=== PATIENT | male | born 1945 | race Caucasian/White ===

== ENCOUNTER → 2017-04-18 | Outpatient (CLI) | payer MEDICARE | END | disposition home or self-care (01) | LOC: PCVCCLINIC 13:44 | PROVIDERS: ATTEND Internal Medicine | DX: I48.4 Atypical atrial flutter (principal); I12.0 Hypertensive chronic kidney disease with stage 5 chronic kidney disease or end stage renal disease; N18.6 End stage renal disease; R00.1 Bradycardia, unspecified; E78.5 Hyperlipidemia, unspecified; E08.22 Diabetes mellitus due to underlying condition with diabetic chronic kidney disease; R94.31 Abnormal electrocardiogram [ECG] [EKG]; I27.29 Other secondary pulmonary hypertension; K74.60 Unspecified cirrhosis of liver; Z99.2 Dependence on renal dialysis | CPT/HCPCS: 80061; 93005; G0463 ==

== ENCOUNTER → 2017-04-28 | Outpatient (CLI) | payer MEDICARE ==
--- NOTE | 2017-04-28 16:08 | PCVCIMAG ---
APPROVED REPORT Study performed: 04/28/2017 14:13:12 EXAM: Comprehensive 2D, Doppler, and color-flow Echocardiogram Patient Location: Echo lab Status: routine BSA: 1.96 HR: 53 bpmBP: 152/70 mmHg Rhythm: Bradycardia, Bigeminy Other Information Study Quality: Good Risk Factors: Cardiac Risk Factors: HTN, Hyperlipidemia Indications Pulmonary Hypertension Atrial Flutter 2D Dimensions LVEF(%): 40.00 (>50%) IVSd: 12.63 (7-11mm)LVOT Diam: 20.02 (18-24mm) LVDd: 46.27 mm PWd: 13.12 (7-11mm)Ascending Ao: 33.60 (22-36mm) LVDs: 38.81 (25-40mm) Left Atrium: 47.37 (27-40mm) Aortic Root: 30.47 mm LV Single Plane 4CH: 44.18 % LV Single Plane 2CH: 52.12 %Casanova's LVEF: 48.15 % Biplane EF: 48.1 % Volumes Left Atrial Volume (Systole) Single Plane 4CH: 78.63 mLSingle Plane 2CH: 71.54 mL LA ESV Index: 39.00 mL/m2 Aortic Valve AoV Peak Dionisio.: 1.48 m/s AO Peak Gr.: 8.83 mmHgLVOT Max P.64 mmHg LVOT Max V: 0.78 m/s BISI Vmax: 1.64 cm2 Pulmonary Valve PV Peak Dionisio.: 1.29 m/sPV Peak Gr.: 6.67 mmHg ID End Vmax: 1.19 m/s Tricuspid Valve TR Peak Dionisio.: 3.01 m/sRAP Estimate: 10.00 mmHg TR Peak Gr.: 37.16 mmHg PA Pressure: 47.00 mmHg Left Ventricle The left ventricle is normal size. There is normal LV segmental wall motion. Mild concentric left ventricular hypertrophy. Left ventricular systolic function is normal. The left ventricular ejection fraction is within the normal range. LVEF 50%. This study is not technically sufficient to allow evaluation of the LV diastolic function. Right Ventricle The right ventricle is normal size. The right ventricular systolic function is normal. Atria Left atrium is dilated. Right atrium is dilated. Aortic Valve The aortic valve is mildly calcified, trileaflet No aortic regurgitation is present. There is no aortic valvular stenosis. Mitral Valve The mitral valve is normal in structure. Moderate mitral regurgitation. No evidence of mitral valve stenosis. Tricuspid Valve The tricuspid valve is normal in structure. Moderate to severe tricuspid regurgitation.Pulmonary artery pressure is 47 mmHg. Pulmonic Valve The pulmonary valve is normal in structure. Mild to moderate pulmonic regurgitation. Great Vessels The aortic root is normal in size. IVC is dilated and collapses <50% with inspiration. Pericardium Trace to small pericardial effusion. <Conclusion> Left ventricular systolic function is normal. There is normal LV segmental wall motion. LVEF 50%. Mild LVH Both atria are dilated. The aortic valve is mildly calcified, trileaflet. No aortic regurgitation or stenosis The mitral valve is normal in structure. Moderate mitral regurgitation. Pulmonary artery pressure of 45mmHg Trace to small pericardial effusion.
== END | disposition home or self-care (01) ==
LOC: PCVCIMAG 14:09
PROVIDERS: ATTEND Internal Medicine
DX: I08.3 Combined rheumatic disorders of mitral, aortic and tricuspid valves (principal); I48.92 Unspecified atrial flutter; I27.20 Pulmonary hypertension, unspecified
CPT/HCPCS: 93306

== ENCOUNTER → 2018-11-01 | Outpatient (CLI) | payer MEDICARE | END | disposition home or self-care (01) | LOC: PCVCCLINIC 14:00 | PROVIDERS: ATTEND Internal Medicine Cardiovascular Disease | DX: I13.2 Hypertensive heart and chronic kidney disease with heart failure and with stage 5 chronic kidney disease, or end stage renal disease (principal); I50.32 Chronic diastolic (congestive) heart failure; N18.6 End stage renal disease; E78.5 Hyperlipidemia, unspecified; E08.22 Diabetes mellitus due to underlying condition with diabetic chronic kidney disease; K74.60 Unspecified cirrhosis of liver; R18.8 Other ascites; Z99.2 Dependence on renal dialysis | CPT/HCPCS: 36415; 80061; 93005; 93279; G0463 ==

== ENCOUNTER → 2019-02-13 | Outpatient (CLI) | payer MEDICARE | END | disposition home or self-care (01) | LOC: PCVCCLINIC 16:04 | PROVIDERS: ATTEND Internal Medicine | DX: I13.2 Hypertensive heart and chronic kidney disease with heart failure and with stage 5 chronic kidney disease, or end stage renal disease (principal); N18.6 End stage renal disease; I50.32 Chronic diastolic (congestive) heart failure; E11.22 Type 2 diabetes mellitus with diabetic chronic kidney disease; E78.5 Hyperlipidemia, unspecified; K74.60 Unspecified cirrhosis of liver; M19.90 Unspecified osteoarthritis, unspecified site; R18.8 Other ascites; Z95.0 Presence of cardiac pacemaker; Z86.2 Personal history of diseases of the blood and blood-forming organs and certain disorders involving the immune mechanism; Z87.891 Personal history of nicotine dependence; Z79.82 Long term (current) use of aspirin; Z79.899 Other long term (current) drug therapy | CPT/HCPCS: 93005; 93279; G0463 ==

== ENCOUNTER → 2019-02-15 | Outpatient (CLI) | payer MEDICARE ==
--- NOTE | 2019-02-15 14:31 | PCVCIMAG ---
APPROVED REPORT Study performed: 02/15/2019 13:03:21 EXAM: Comprehensive 2D, Doppler, and color-flow Echocardiogram Patient Location: Echo lab Room #: 2Status: routine BSA: 1.97 HR: 60 bpmBP: 118/62 mmHg Rhythm: Atrial Fibrillation/paced Other Information Study Quality: Adequate Risk Factors: Cardiac Risk Factors: HTN, Hyperlipidemia, DM Indications Pulmonary Hypertension Pacemaker 2D Dimensions IVSd: 9.39 (7-11mm)LVOT Diam: 17.75 (18-24mm) LVDd: 47.87 mm PWd: 8.64 (7-11mm)Ascending Ao: 32.77 (22-36mm) LVDs: 27.54 (25-40mm) Left Atrium: 51.70 (27-40mm) Aortic Root: 25.17 mm LV Single Plane 4CH: 43.52 % LV Single Plane 2CH: 57.82 % Biplane EF: 50.8 % Volumes Left Atrial Volume (Systole) Single Plane 4CH: 90.19 mLSingle Plane 2CH: 93.18 mL Biplane LA Volume: 94.00 mLLA ESV Index: 48.00 mL/m2 Aortic Valve AoV Peak Dionisio.: 1.14 m/s AO Peak Gr.: 5.24 mmHgLVOT Max P.12 mmHg LVOT Max V: 0.71 m/s BISI Vmax: 1.54 cm2 Mitral Valve MV E Max Dionisio.: 1.00 m/s MV PHT: 49.48 ms MVA (PHT): 4.45 cm2 TDI E/Lateral E': 5.26E/Medial E': 25.00 Medial E' Dionisio.: 0.04 m/s Lateral E' Dionisio.: 0.19 m/s Tricuspid Valve TR Peak Dionisio.: 2.79 m/s TR Peak Gr.: 31.04 mmHg TV Vmax: 1.07 m/sPA Pressure: 480.04 mmHg Shunt Evaluation QP/QS: 0.19 Left Ventricle The left ventricle is normal size. Paradoxical septal motion consistent with paced rhythm. There is normal left ventricular wall thickness. The left ventricular systolic function is normal. The left ventricular ejection fraction is within the normal range. LVEF is 50-55%. This study is not technically sufficient to allow evaluation of the LV diastolic function due to atrial fibrillation. Right Ventricle The right ventricle is normal size. The right ventricular systolic function is normal. Pacemaker lead is present in the right ventricle. Atria Left atrium is severely dilated. Right atrium is severely dilated. Pacemaker lead is present in the right atrium. Aortic Valve Aortic valve is trileaflet, mild sclerosis No aortic regurgitation is present. There is no aortic valvular stenosis. Mitral Valve The mitral valve is normal in structure. Mild mitral regurgitation. No evidence of mitral valve stenosis. Tricuspid Valve The tricuspid valve is normal in structure. Severe tricuspid regurgitation with a PA pressure of 48 mmHg. Pulmonic Valve The pulmonary valve is normal in structure. Mild pulmonic regurgitation. Great Vessels The aortic root is normal in size. Dilated IVC with poor inspiration collapse is consistent with elevated right atrial pressure. Pericardium There is no pericardial effusion. Ascites is present. <Conclusion> The left ventricular systolic function is normal. Paradoxical septal motion consistent with paced rhythm. LVEF is 50-55%. Pacemaker lead is present in the right ventricle. Both atria are severely dilated. Aortic valve is trileaflet, mild sclerosis. No aortic regurgitation or stenosis. The mitral valve is normal in structure. Mild mitral regurgitation. Severe tricuspid regurgitation with a pulmonary artery pressure of 45 mmHg. There is no pericardial effusion.
== END | disposition home or self-care (01) ==
LOC: PCVCIMAG 13:02
PROVIDERS: ATTEND Internal Medicine
DX: I08.3 Combined rheumatic disorders of mitral, aortic and tricuspid valves (principal); I27.20 Pulmonary hypertension, unspecified; R18.8 Other ascites; I11.0 Hypertensive heart disease with heart failure; I50.32 Chronic diastolic (congestive) heart failure; R06.09 Other forms of dyspnea; R00.1 Bradycardia, unspecified; I48.92 Unspecified atrial flutter; Z87.891 Personal history of nicotine dependence
CPT/HCPCS: 93306